=== PATIENT | male | born 1980 | race Caucasian/White ===

== ENCOUNTER 2023-02-10 09:01 | Inpatient (IN) | payer OTHER ==
[2023-02-07 09:34] VITALS: BMI 22.1
[2023-02-10] MEDS ORDERED: Levofloxacin 500 mg/D5W 100 ml Premix Bag ONE (11:50)
[2023-02-10] MEDS ORDERED: Clindamycin/D5W 900 mg/50 ml Premix Bag ONE (11:50)
[2023-02-10] MEDS ORDERED: HYDROmorphone 0.5 MG/0.5 ML SYRINGE ONE ×2 (11:59→17:56)
[2023-02-10] MEDS ORDERED: Fentanyl 250 MCG/5 ML VIAL ONE (11:59)
[2023-02-10] MEDS ORDERED: Vancomycin 1 GM VIAL ONE (12:04)
[2023-02-10 12:13] LABS: Hemoglobin 15.5 g/dL (14.0-18.0); Mean Corpuscular HGB CONC 35.2 g/dL (32.0-36.0); Mean Corpuscular Hemoglobin 31.3 pg (27.0-31.0); Mean Corpuscular Volume 88.9 fl (78.0-98.0); Mean Platelet Volume 9.8 fL (7.4-10.4); Platelet Count 211 10x3/uL (130-400); RBC Distribution Width 12.2 % (11.5-14.5); Red Blood Cell (RBC) Count 4.95 mill/uL (4.70-6.10); White Blood Cell (WBC) Count 8.7 10x3/uL (4.8-10.8)
[2023-02-10 12:37] LABS: Anion Gap 10 mmol/L (10-20); BUN (Urea Nitrogen) 13 mg/dL (8.9-20.6); Calc. Creatinine Clearance 131 mL/min (70-130); Calcium 9.6 mg/dL (7.8-10.44); Carbon Dioxide 27 mmol/L (22-29); Chloride 107 mmol/L (98-107); Estimated GFR 113; Glucose 87 mg/dL (70-105); Potassium 4.1 mmol/L (3.5-5.1); Sodium 140 mmol/L (136-145)
[2023-02-10] MEDS ORDERED: Midazolam HCl 2 mg/2 ml Vial ONE (12:40)
[2023-02-10] MEDS ORDERED: Bacitracin Zinc Ointment 30 gm TUBE ONE (12:40)
[2023-02-10] MEDS ORDERED: Ondansetron PF 4 MG/2 ML Vial ONE (13:11)
[2023-02-10] MEDS ORDERED: Dexamethasone 20 MG/5 ML VIAL ONE (13:11)
[2023-02-10] MEDS ORDERED: Lidocaine 1% PF 5 ML VIAL ONE (13:11)
[2023-02-10] MEDS ORDERED: PROPOFOL 200 MG/20 ML VIAL ONE (13:11)
[2023-02-10] MEDS ORDERED: Rocuronium Bromide 10 MG/ML (10ML VIAL) ONE (13:11)
[2023-02-10] MEDS ORDERED: SUGAMMADEX SODIUM 200 MG/2 ML VIAL ONE (15:08)
[2023-02-10] MEDS ORDERED: Mag-Al 1200 mg/1200 mg/30 ML UDCUP PO PRN (15:53)
[2023-02-10] MEDS ORDERED: diphenhydrAMINE 50 MG/ML VIAL IVP PRN (15:53)
[2023-02-10] MEDS ORDERED: Promethazine 25 MG TAB PO PRN (15:53)
[2023-02-10] MEDS ORDERED: Morphine 2 MG/ML VIAL SLOW IVP PRN (15:53)
[2023-02-10] MEDS ORDERED: Milk Of Magnesia 30 ML UDCUP PO PRN (15:53)
[2023-02-10] MEDS ORDERED: Ondansetron PF 4 MG/2 ML Vial IVP PRN (15:53)
[2023-02-10] MEDS ORDERED: fentaNYL 50 mcg/mL 1 mL Vial ONE ×5 (16:22→19:38)
[2023-02-10] MEDS: Sodium Chloride 0.9% 1,000 ML IV SCH (20:57)
[2023-02-10] MEDS: Clindamycin/D5W 600 MG in Premix Bag 1 BAG IVPB SCH (20:57)
[2023-02-10] MEDS: HYDROcodone/Acetaminophen 10/325 mg Tablet PO PRN (21:41)
[2023-02-10] MEDS: QUEtiapine 100 MG TAB PO SCH (21:41)
[2023-02-11] MEDS: Clindamycin/D5W 600 MG in Premix Bag 1 BAG IVPB SCH ×5 (01:00→22:15)
[2023-02-11] MEDS: HYDROcodone/Acetaminophen 10/325 mg Tablet PO PRN ×4 (03:24→22:35)
[2023-02-11] MEDS: Sodium Chloride 0.9% 1,000 ML IV SCH ×2 (06:08→21:48)
[2023-02-11] MEDS: buPROPion 75 MG TAB PO SCH (09:29)
[2023-02-11] MEDS: Tamsulosin HCl 0.4 MG CAP PO SCH (11:11)
[2023-02-11] MEDS ORDERED: Tamsulosin HCl 0.4 MG CAP PO SCH (11:15)
[2023-02-11] MEDS: tiZANidine HCl 4 MG TAB PO PRN (17:49)
[2023-02-11] MEDS: QUEtiapine 100 MG TAB PO SCH (20:30)
[2023-02-11] MEDS: traMADol HCl 50 MG TAB PO PRN (22:15)
[2023-02-12] MEDS: HYDROcodone/Acetaminophen 10/325 mg Tablet PO PRN ×2 (05:47→11:03)
[2023-02-12] MEDS: Clindamycin/D5W 600 MG in Premix Bag 1 BAG IVPB SCH ×2 (05:47→11:03)
[2023-02-12] MEDS: tiZANidine HCl 4 MG TAB PO PRN (05:47)
[2023-02-12] MEDS: Sodium Chloride 0.9% 1,000 ML IV SCH (07:47)
[2023-02-12] MEDS: traMADol HCl 50 MG TAB PO PRN (08:09)
[2023-02-12] MEDS: Tamsulosin HCl 0.4 MG CAP PO SCH (08:09)
[2023-02-12] MEDS: buPROPion 75 MG TAB PO SCH (08:09)
[2023-02-12 11:51] VITALS: BP 118/72; TEMP 97.8
== END 2023-02-12 16:00 | disposition home or self-care (01) | DRG 454 ==
LOC: SDC 09:01 → SURG A 15:51
PROVIDERS: ADMIT Neurological Surgery; ATTEND Neurological Surgery
PROC: 0RG20A0 Fusion of 2 or more Cervical Vertebral Joints with Interbody Fusion Device, Anterior Approach, Anterior Column, Open Approach (ICD-10-PCS; principal; 2023-02-10)
PROC: 0RG2071 Fusion of 2 or more Cervical Vertebral Joints with Autologous Tissue Substitute, Posterior Approach, Posterior Column, Open Approach (ICD-10-PCS; 2023-02-10)
PROC: 0RT30ZZ Resection of Cervical Vertebral Disc, Open Approach (ICD-10-PCS; 2023-02-10)
PROC: 01N10ZZ Release Cervical Nerve, Open Approach (ICD-10-PCS; 2023-02-10)
PROC: 00NW0ZZ Release Cervical Spinal Cord, Open Approach (ICD-10-PCS; 2023-02-10)
DX: M48.02 Spinal stenosis, cervical region (principal); M47.12 Other spondylosis with myelopathy, cervical region; Z88.0 Allergy status to penicillin
CPT/HCPCS: 36415; 80048; 85027; 93005; 93010; C1713; C1776; J1100; J1170; J1956; J2250; J2405; J2704; J3010; J3370; J3490; J7050